=== PATIENT | male | born 1965 | race Caucasian/White ===

== ENCOUNTER 2024-12-15 07:25 | Outpatient (REF) | payer OTHER, SELFPAY ==
--- OUTSIDE RECORDS SUMMARY | 2024-12-15 07:28 | XMS_ITS ---
Author Name [facility] Organization Unknown Care Team Organization Name Specialty Phone Email Start Date End Da te [facility] Alexis Izaguirre Primary Care 12/13/2021 [facility] LOLA RAMÍREZ Primary Care
--- OUTSIDE RECORDS SUMMARY | 2024-12-15 07:28 | XMS_ITS | Clinical Summary ---
Author Organization [facility] Address [address] [place] [phone] Phone Care Team Providers Care Technician Test Systems Name Role Phone Alexis Izaguirre Primary Care Provider [phone] Allergies Active Allergy Reactions Criticality Noted Date Comments Hydrocodone-Acetaminophen Nausea And Vomiting 0 06/14/2012 Medications syringe, disposable, 3 mL syringe Syringe/Needle, Disp, (SYRINGE 3CC/23GX1 ) 23G X 1 3 ML Misc Use as directed to inject testosterone weekly 4 Active testosterone cypionate (DEPO-TESTOTERO NE) 200 mg/mL injection Inject 1 mL (200 mg total) into the shoulder, thigh, or buttocks every 14 (fourteen) days. Max Daily Amount: 200 mg 4 Active syringe, disposable, 1 mL syringe SYRINGE/NEEDLE, DISP, 1 ML 23G X 1 1 ML Misc Used to inject testosterone weekly 4 Active galcanezumab-gn lm (Emgality Pen) 120 mg/mL injection pen Inject 1 mL (120 mg total) under the skin every 30 (thirty) days. 3 Active tadalafiL (CIALIS) 5 mg tablet Take 1 tablet (5 mg total) by mouth 1 (one) time each day if needed for erectile dysfunction. 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 focal hyperplastic crypts. Erosive gastritis 06/14/2012 Overview (01/22/2024): Solitary 3 mm gastric antral erosion, probably due to aspirin, at EGD 06/14/2012. Immunizations Immunization Administration Dates Next Due Influenza trivalent, 0.5mL, preservative free (Fluarix; FluLaval; Fluzone) ages 6mo and older (Afluria) 3 years and older 11/09/2016,11/03/2015,11/18/2013,2009 Influenza trivalent, with preservative (Fluzone; Afluria) 6mo and older 11/09/2016,11/03/2015,11/18/2013 Influenza, Unspecified 11/09/2014 Td Tetanus diptheria (Tdvax) 7yo and older 08/28/2023 Tdap Tetanus diptheria acell ular pertussis (Boostrix; Adacel) 7yo and older 05/23/2013 Surgical History Surgery Date Site/Laterality Comments ESOPHAGOGASTRODUODENOSCOPY 02/06/2012 PROCEDURE: MN ESOPHAGOGASTRODUODENOSCOPY TRANSORAL DIAGNOSTIC; COMMENT: solitary 3 mm antral erosion, probably due to aspirin COLONOSCOPY W/ BIOPSIES 02/06/2012 PROCEDURE: MN COLONOSCOPY W/BIOPSY SINGLE/MULTIPLE; COMMENT: 5 mm rectal polyp: COLONIC MUCOSA WITH ?FOCAL HYPERPLASTIC CRYPTS. APPENDECTOMY PROCEDURE: MN APPENDECTOMY TONSILLECTOMY PROCEDURE: HISTORICAL TONSILLECTOMY OTHER SURGICAL HISTORY Right PROCEDURE: HISTORY OTHER; COMMENT: acl repair ADENOIDECTOMY PROCEDURE: HISTORICAL ADENOIDECTOMY COLONOSCOPY 04/30/2023 PROCEDURE: HISTORICAL COLONOSCOPY; COMMENT: dr. ortiz 2 polyps Medical History Medical History Date Comments Benign neoplasm of rectum and anal canal 06/15/19 13 DX:Benign neoplasm of rectum and anal canal; COMMENT: 5 mm rectal polyp, bx 06/14/2012: Historical Medical DX 06/14/2012 DX:Erosive gastritis; COMMENT: Solitary 3 mm gastric antral erosion, probably due to aspirin, at EGD 06/14/2012. Sleep apnea 05/23/2013 DX:Sleep apnea Neck pain 12/02/2015 DX:Neck pain; CO MMENT: Responds to cervical traction Gout 05/02/2019 DX:Gout Hyperlipidemia 05/02/2019 DX:Hyperlipidemi a Family History Medical History Relation Name Comments Other: lewy body dementia Father sm oking Breast cancer Maternal Grandmother Alzheimer's disease Mother Blindness Neg Hx Cataracts Neg Hx Glaucoma Neg Hx Macular degeneration Neg Hx Strabismus Neg Hx Relation Name Status Comments Father (Age 78) mi cabg at age 67 dementia dm Maternal Grandmother Mother (Age 83) dementia b orderline dm Sister Alive Social History Tobacco Use Types Packs/Day Years Used Date Smoking Tobacco: Former Cigarettes 0 Q uit: 02/05/1995 Smokeless Tobacco: Never Alcohol Use Standard Drinks/Week Comments Yes 0 (1 standard drink = 0.6 oz pur e alcohol) Sex and Gender Information Value Date Recorded Sex Assigned at Not on file Legal Sex Male 8:49 PM EST Gender Identity Not on file Sexual Orientation Not on file Obstetrics History Last Filed Vital Signs Vital Sign Reading Time Taken Comments Blood Pressure 107/71 08/28/2023 12:10 PM EDT Pulse 69 08/28/2023 12:10 PM EDT Temperature - - Respiratory Rate - - Oxygen Saturation - - Inhaled Oxygen Concentration - - Weight 92.5 kg (204 lb) 08/28/2023 12:10 PM EDT Height 180.3 cm (5' 11 ) 08/28/2023 12:10 PM EDT Body Mass Index 28.45 08/28/2023 12:10 PM EDT Plan of Treatment Health Maintenance Due Date Last Done Comments Hepatitis B Vaccines (1 of 3 - 19+ 3-dose series) 1986 Pneumococcal Vaccine: 50+ Years (1 of 1 - PCV) 2017 Zoster Vaccines (1 of 2) 2017 HIV Screening 01/14/2022 Social Influencers of Health Screening 01/14/2022 Depression Screening 02/06/2024 COVID-19 Vaccine (4 - 2025-26 season) 2024 01/07/2021, 02/24/2020, 02/03/2020 Influenza Vaccine (#1) 2024 7, 11/09/2016, 11/03/2015, Additional history exists Colorectal Cancer Screening: Colonoscopy 04/29/2028 04/30/2023 Cholesterol Screening (Lipid Panel) 08/30/2028 08/31/2023, 08/31/2023 DTaP,Tdap,and Td Vaccines (3 - Td or Tdap) 08/27/2033 08/28/2023, 05/23/2013 RSV Immunization Adult Patients (1 - 1-dose 75+ series) 2042 Hepatitis C Screening Completed 09/05/2021 HIB Vaccines Aged Out No longer eligi ble based on patient's age to complete this topic HPV Vaccines Aged Out No longer eligi ble based on patient's age to complete this topic Hepatitis A Vaccines Aged Out No long er eligible based on patient's age to complete this topic IPV Vaccines Aged Out No longer eligi ble based on patient's age to complete this topic MMR Vaccines Aged Out No longer eligi ble based on patient's age to complete this topic Meningococcal ACWY Vaccine Aged Out N o longer eligible based on patient's age to complete this topic Meningococcal B Vaccine Aged Out No l onger eligible based on patient's age to complete this topic RSV Immunization Patients Under 20 months Aged Out No longer eligible based on patient's age to complete this topic Varicella Vaccines Aged Out No longer eligible based on patient's age to complete this topic Procedures Procedure Name Priority Date/Time Associated Diagnosis Comments LIPID PANEL Routine 08/31/2023 COLONOSCOPY Routine 04/30/2023 HEPATITIS C SCREENING Routine 09/05/2021 from Last 3 Months or Most Recently Relevant to Health Maintenance Results * (ABNORMAL) Lipid panel (08/31/2023) LDL/HDL Ratio 6(A) 0 - 4 Triglycerides 286(A) 0 - 150 mg/dL Cholesterol 177 0 - 200 mg/dL HDL 31(A) >=40 mg/dL LDL Cholesterol 89 0 - 100 mg/dL Blood Venous blood specimen / Unknown Historical Provider LAB BLOOD ORDERABLES Kim l Result * Colonoscopy (04/30/2023) Colonoscopy No Interpretation , Abstracted Anatomical Region Laterality Modality Other Historical Provider HEALTH MAINTENANCE Final Result * Hepatitis C Screening (09/05/2021) Hepatitis C Screening Abstracted Historical Provider HEALTH MAINTENANCE Final Result from Last 3 Months or Most Recently Relevant to Health Maintenance Insurance Care Teams Technician Test Systems Relationship Specialty Start Date End Date Alexis Izaguirre PA [address] [place] [id number] PCP - General Internal Medicine 02/20/24
--- OUTSIDE RECORDS SUMMARY | 2024-12-15 07:28 | XMS_ITS | Clinical Summary ---
Author Organization [facility] Address [address] [place] [address] Care Team Providers Care Dehydrogenation Supervisor Name Role Phone Unknown, Primary Care Provider Unavailabl e Social History Tobacco Use Types Packs/Day Years Used Date Smoking Tobacco: Never Assessed Sex and Gender Information Value Date Recorded Sex Assigned at Not on file Gender Identity Not on file Sexual Orientation Not on file Job Start Date Occupation Industry Not on file Not on file Not on file Plan of Treatment Health Maintenance Due Date Last Done Comments Hepatitis B Vaccines (1 of 3 - 3-dose series) 1967 Hepatitis C Screening 1967 COVID-19 Vaccine (#1) 1967 Depression Screening 1979 Preventative Health Evaluation 1985 DTap / Tdap / Td (1 - Tdap) 1986 Colon Cancer Screening (Colonoscopy) 2012 Shingrix-Zoster Vaccine (1 of 2) 2017 Influenza Vaccine (#1) 2024 Pneumococcal Vaccine Aged Out No long er eligible based on patient's age to complete this topic RSV Ped < 20 months Aged Out No longe r eligible based on patient's age to complete this topic Care Teams Dehydrogenation Supervisor Relationship Specialty Start Date End Date Unknown, PCP - General 02/21/20
--- OUTSIDE RECORDS SUMMARY | 2024-12-15 07:28 | XMS_ITS | Encounter Summary ---
Author Organization [facility] Address [address] [place] [address] Care Team Providers Care Nailer Hand Name Role Phone Gallito Scott MD Primary Care Provider [phone] Encounter Details Date Type Department Care Team (Late st Contact Info) Description 10/10/2024 Scanned Document [facility] Department of Physiatry [place] [address] [place] [address] Lila Bragg MD [address] [place] [address] [place] [address] Social History Tobacco Use Types Packs/Day Years Used Date Smoking Tobacco: Never Assessed Sex and Gender Information Value Date Recorded Sex Assigned at Not on file Legal Sex Male 6:18 PM EST Gender Identity Not on file Sexual Orientation Not on file documented as of this encounter Plan of Treatment Not on file documented as of this encounter Visit Diagnoses Not on filedocumented in this encounter Care Teams Nailer Hand Relationship Specialty Start Date End Date Gallito Scott MD [address] [place] [id number] PCP - General 12/14/19 documented as of this encounter
--- OUTSIDE RECORDS SUMMARY | 2024-12-15 07:28 | XMS_ITS | Clinical Summary ---
Author Organization [facility] Address [address] [place] [id number] Care Team Providers Care Window Sash Installer Name Role Phone Gallito Scott MD Primary Care Provider [phone] Allergies No known active allergies Medications tadalafil (CIALIS) 5 mg tablet Take 5 mg by mouth daily. 12/06/2019 Active Encounters Date Type Department Care Team Description 10/10/2024 Scanned Document [facility] Department of Physiatry [place] [address] [place] [phone] Lila Bragg MD 10/10/2024 Scanned Document [facility] Department of Physiatry [place] [address] [place] [address] Gallito Scott MD from Last 3 Months Social History Tobacco Use Types Packs/Day Years Used Date Smoking Tobacco: Never Assessed Sex and Gender Information Value Date Recorded Sex Assigned at Not on file Legal Sex Male 6:18 PM EST Gender Identity Not on file Sexual Orientation Not on file Last Filed Vital Signs Vital Sign Reading Time Taken Comments Blood Pressure 129/85 12/14/2019 12:17 PM EST Pulse 113 12/14/2019 12:24 PM EST Temperature 37 C (98.6 F) 12/14/2019 12:17 PM EST Respiratory Rate - - Oxygen Saturation 97% 12/14/2019 12:17 PM EST Inhaled Oxygen Concentration - - Weight 93 kg (205 lb) 12/14/2019 12:17 PM EST Height 180.3 cm (5' 11 ) 12/14/2019 12:17 PM EST Body Mass Index 28.59 12/14/2019 12:17 PM EST Plan of Treatment Health Maintenance Due Date Last Done Comments Hepatitis C Virus Screening 1967 HIV Screening 1980 DTaP/Tdap/Td Vaccines (1 - Tdap) 1986 Hepatitis B Vaccines (1 of 3 - 19+ 3-dose series) 05/1986 Colonoscopy 2012 Pneumococcal Vaccines 50+ (1 of 1 - PCV) 2017 Zoster (Shingles) Vaccine (1 of 2) 2017 Influenza Vaccine 09/05/2024 COVID-19 Vaccine (1 - season) 2024 RSV Vaccine 50 years and old er and Patients (1 - 1-dose 75+ series) 2042 Insurance [employer] HMO/POS Care Teams Window Sash Installer Relationship Specialty Start Date End Date Gallito Scott MD [address] [place] [address] PCP - General 12/14/19
--- OUTSIDE RECORDS SUMMARY | 2024-12-15 07:28 | XMS_ITS | Encounter Summary ---
Author Organization [facility] Address [address] [place] [address] Care Team Providers Care Online Community Manager Name Role Phone Gallito Scott MD Primary Care Provider [phone] Encounter Details Date Type Department Care Team (Late st Contact Info) Description 10/10/2024 Scanned Document [facility] Department of Physiatry [place] [address] [place] [phone] Gallito Scott MD [address] [place] [address] Social History Tobacco Use Types Packs/Day Years [...] on filedocumented in this encounter Care Teams Online Community Manager Relationship Specialty Start Date End Date Gallito Scott MD [address] [place] [address] PCP - General 12/14/19 documented as of this encounter
--- OUTSIDE RECORDS SUMMARY | 2024-12-15 07:28 | XMS_ITS | Encounter Summary ---
Author Organization [facility] Address [address] [place] [address] Care Team Providers Care Cut Off Saw Operator Pipe Blanks Name Role Phone Gallito Scott MD Primary Care Provider [phone] Encounter Details Date Type Department Care Team (Late st Contact Info) Description 12/19/2022 Scanned Document [facility] Department of Internal Medicine [place] [address] [place] [address] Gallito Scott MD [address] [place] [address] Social History Tobacco Use Types Packs/Day Years [...] on filedocumented in this encounter Care Teams Cut Off Saw Operator Pipe Blanks Relationship Specialty Start Date End Date Gallito Scott MD [address] [place], [place] [phone] PCP - General 12/14/19 documented as of this encounter
[2024-12-15 07:43] LABS: MANUAL DIFF FLAG NO
[2024-12-15 08:26] LABS: Hematocrit 47.9 % (42.0-52.0); Hemoglobin 16.2 g/dl (14.0-18.0); Imm Gran Abs Auto 0.03 X10*3/uL (0.00-0.03); Imm Gran Pct Auto 0.3 % (0.0-0.4); Lymphocytes Absolute Auto 2.5 X10*3/uL (1.2-4.9); Mean Corpuscular HGB Conc 33.8 g/dl (31.0-36.0); Mean Corpuscular Hemoglobin 30.7 pg (27.0-33.0); Mean Corpuscular Volume 90.9 fL (80.0-98.0); NRBC Abs Auto 0.000 X10*3/uL (0.0-0.012); NRBC Pct Auto 0.0 /100WBC (0.0-0.2); Platelet Count 202 X10*3/uL (160-400); Red Blood Count 5.27 X10*6/uL (4.60-5.80); White Blood Count 8.6 X10*3/uL (4.8-10.8)
[2024-12-15 09:12] LABS: Prostate Specific Antigen 0.25 ng/mL (<0.05-4.0)
[2024-12-16 06:08] LABS: Follicle Stimulating Hormone 16.4 mIU/mL (1.4-12.8)
[2024-12-22 13:54] LABS: Testosterone, Free 35.2 pg/mL (35.0-155.0)
== END 2024-12-15 07:26 | disposition home or self-care (01) ==
LOC: HO.LAB 07:25
PROVIDERS: PCP Physician Assistant Medical; Visit Provider Urology
DX: Z12.5 Encounter for screening for malignant neoplasm of prostate (principal); N40.0 Benign prostatic hyperplasia without lower urinary tract symptoms; E29.1 Testicular hypofunction
CPT/HCPCS: 36415; 83001; 83002; 84146; 84153; 84402; 84403; 85025